=== PATIENT | female | born 1950 | race Caucasian/White ===

== ENCOUNTER 2018-03-14 17:52 | Emergency (ER) | payer MEDICARE, OTHER ==
[2018-03-14] MEDS ORDERED: Sodium Chloride 0.9% 10 ML Syringe FLUSH PRN (18:01)
[2018-03-14] MEDS ORDERED: HYDROmorphone 1 MG/ML Syringe IVPUSH ONE ×2 (18:02→19:31)
--- NOTE | 2018-03-14 18:38 | EDM.PDOC ---
ED HPI GENERAL MEDICAL PROBLEM - General Chief Complaint: Lower Extremity Injury/Pain Stated Complaint: LEG Time Seen by Provider: 03/14/18 17:52 Source of Information: Reports: Patient History Limitations: Reports: No Limitations - History of Present Illness INITIAL COMMENTS - FREE TEXT/NARRATIVE: Pt. presents to ER with complaints of L ankle pain. Pt. states that her foot when into a depression in her [place] and she twisted her foot and ankle. She noted obvious deformity and subsequently came to the ER for care. She states that she is not experiencing any numbness/tingling in the distal portion of the foot. She denies injury other than what is isolated to her L ankle. She is not a smoker. Her last oral intake was 5:00 this evening, shortly before the accident happened. Onset: Today Onset Date: 03/14/18 Onset Time: 17:30 Location: Reports: Lower Extremity, Left Quality: Reports: Sharp, Throbbing - Related Data Allergies Allergy/AdvReac Type Severity Reaction Status Date / Time No Known Allergies Allergy Verified 03/14/18 18:15 Home Meds: Home Meds . [No Known Home Meds] 03/14/18 [History] Past Medical History - Past Health History Medical/Surgical History: Denies Medical/Surgical History Social & Family History - Tobacco Use Smoking Status *Q: Unknown Ever Smoked Review of Systems - Review of Systems Review Of Systems: See Below Constitutional: Reports: No Symptoms Eyes: Reports: No Symptoms Ears: Reports: No Symptoms Nose: Reports: No Symptoms Mouth/Throat: Reports: No Symptoms Respiratory: Reports: No Symptoms Cardiovascular: Reports: No Symptoms GI/Abdominal: Reports: No Symptoms Genitourinary: Reports: No Symptoms Musculoskeletal: Reports: No Symptoms Skin: Reports: No Symptoms Neurological: Reports: No Symptoms Psychiatric: Reports: No Symptoms ED EXAM, GENERAL - Physical Exam Exam: See Below Exam Limited By: No Limitations General Appearance: Alert, WD/WN, No Apparent Distress Nose: Normal Inspection, Normal Mucosa, No Blood Throat/Mouth: Normal Inspection, Normal Lips, Normal Teeth, Normal Gums, Normal Oropharynx, Normal Voice, No Airway Compromise Head: Atraumatic, Normocephalic Neck: Normal Inspection, Supple, Non-Tender, Full Range of Motion Respiratory/Chest: No Respiratory Distress, Lungs Clear, Normal Breath Sounds, No Accessory Muscle Use, Chest Non-Tender Cardiovascular: Normal Peripheral Pulses, Regular Rate, Rhythm, No Edema, No Gallop, No JVD, No Murmur, No Rub Peripheral Pulses: 4+: Radial (L), Radial (R), Posterior Tibial (L), Posterior Tibial (R), Dorsalis Pedis (L), Dorsalis Pedis (R) GI/Abdominal: Normal Bowel Sounds, Soft, Non-Tender, No Organomegaly, No Distention, No Abnormal Bruit, No Mass (Female) Exam: Deferred Rectal (Female) Exam: Deferred Back Exam: Normal Inspection, Full Range of Motion, NT Extremities: Other (Obvious fracture dislocation of the L ankle. CMS intact.) Neurological: Alert, Oriented, CN II-XII Intact, Normal Cognition, Normal Gait, Normal Reflexes, No Motor/Sensory Deficits Course - Vital Signs Last Recorded V/S: Last Vital Signs Temp 37.3 C 03/14/18 17:52 Pulse 79 03/14/18 17:52 Resp 20 03/14/18 17:52 BP 125/67 03/14/18 17:52 Pulse Ox 99 03/14/18 17:52 - Orders/Labs/Meds Orders: Active Orders 24 hr Category Date Time Status Ankle 2V Lt [CR] Stat Exams 03/14/18 18:03 Taken Ankle 2V Lt [CR] Stat Exams 03/14/18 19:14 Taken Sodium Chloride 0.9% [Saline Flush] Med 03/14/18 18:01 Active 10 ml FLUSH ASDIRECTED PRN Peripheral IV Insertion Adult [OM.PC] Routine Oth 03/14/18 18:01 Ordered Medication Orders Sodium Chloride (Saline Flush) 10 ml FLUSH ASDIRECTED PRN PRN Reason: Keep Vein Open Meds: Medications Generic Name Dose Route Start Last Admin Trade Name Freq PRN Reason Stop Dose Admin Sodium Chloride 10 ml 03/14/18 18:01 Saline Flush FLUSH ASDIRECTED PRN Keep Vein Open Discontinued Medications Generic Name Dose Route Start Last Admin Trade Name Freq PRN Reason Stop Dose Admin Hydrocodone Bitart/Acetaminophen 2 packet 03/14/18 19:32 Take Home: Acetaminophen/Hydrocodone 325-10mg PO 03/14/18 19:33 ONETIME ONE Hydromorphone HCl 1 mg 03/14/18 18:02 03/14/18 18:08 Dilaudid IVPUSH 03/14/18 18:03 1 mg ONETIME ONE Administration Hydromorphone HCl 1 mg 03/14/18 19:31 03/14/18 19:34 Dilaudid IVPUSH 03/14/18 19:32 1 mg ONETIME ONE Administration Midazolam HCl 2 mg 03/14/18 18:49 03/14/18 19:11 Versed 1 Mg/Ml IVPUSH 03/14/18 18:50 2 mg ONETIME ONE Administration Departure - Departure Time of Disposition: 19:55 Disposition: Home, Self-Care 01 Clinical Impression: Closed trimalleolar fracture of left ankle - Discharge Information Instructions: Ankle Fracture, [id number], Ankle Fracture Referrals: PCP,None [Primary Care Provider] - Forms: ED Department Discharge Additional Instructions: Do not eat anything after midnight. Stout 10/325mg 1-2 every 4-6 hours as needed for pain. Do not take any ibuprofen tonight, as you likely will be having surgery tomorrow. Use the crutches. Dr. Delatorre wants you to go to [facility] ER tomorrow morning (7:30-8:00AM) and he will evaluate your injury. - My Orders Last 24 Hours: My Active Orders 03/14/18 18:01 Sodium Chloride 0.9% [Saline Flush] 10 ml FLUSH ASDIRECTED PRN Peripheral IV Insertion Adult [OM.PC] Routine 03/14/18 18:03 Ankle 2V Lt [CR] Stat 03/14/18 19:14 Ankle 2V Lt [CR] Stat - Assessment/Plan Last 24 Hours: My Active Orders 03/14/18 18:01 Sodium Chloride 0.9% [Saline Flush] 10 ml FLUSH ASDIRECTED PRN Peripheral IV Insertion Adult [OM.PC] Routine 03/14/18 18:03 Ankle 2V Lt [CR] Stat 03/14/18 19:14 Ankle 2V Lt [CR] Stat
[2018-03-14] MEDS ORDERED: Midazolam 1 MG/ML 2 ML SDV IVPUSH ONE (18:49)
[2018-03-14] MEDS ORDERED: Take Home: Acetaminophen/HYDROcodone 325-10 MG, 5 Tab Pack PO ONE (19:32)
== END 2018-03-14 20:05 | disposition home or self-care (01) ==
LOC: VM.ED 17:52
DX: S82.852A Displaced trimalleolar fracture of left lower leg, initial encounter for closed fracture (principal); X50.1XXA Overexertion from prolonged static or awkward postures, initial encounter
CPT/HCPCS: 27818; 27840; 73600; 96374; 96375; 96376; 99152; 99153; 99283; 99284; A9270; J1170; J2250; 29515